=== PATIENT | female | born 1960 | race African-American/Black ===

== ENCOUNTER 2021-03-27 10:59 | Inpatient (IN) | payer OTHER ==
[2021-03-27 12:27] VITALS: BMI 31.2
[2021-03-27] MEDS ORDERED: MAG HYDROX/AL HYDROX/SIMETH 30 ML UNIT-DOSE CUP PO PRN (13:59)
[2021-03-27] MEDS ORDERED: IBUPROFEN 400 MG TABLET (FP) PO PRN (13:59)
[2021-03-27] MEDS ORDERED: MAGNESIUM HYDROX 2400MG/30ML ORAL SUSPENSION 30 ML CUP PO PRN (13:59)
[2021-03-27] MEDS ORDERED: NICOTINE POLACRILEX 2 MG GUM BUC PRN (13:59)
[2021-03-27] MEDS ORDERED: BISMUTH SUBSALICYLATE 262 MG/15 ML BTL PO PRN (13:59)
[2021-03-27] MEDS ORDERED: ACETAMINOPHEN 325 MG TABLET (FP) PO PRN ×2 (13:59)
[2021-03-27] MEDS ORDERED: MAGNESIUM CITRATE 300 ML BOTTLE PO PRN (13:59)
[2021-03-27] MEDS ORDERED: ONDANSETRON *ODT* 4 MG TABLET SL PRN (13:59)
[2021-03-27] MEDS ORDERED: MENTHOL/PHENOL 1 EACH UD MM PRN (13:59)
[2021-03-27] MEDS ORDERED: METHOCARBAMOL 500 MG TABLET PO PRN (13:59)
[2021-03-27] MEDS ORDERED: IBUPROFEN 400 MG TABLET (FP) PO ONE (14:19)
[2021-03-27] MEDS ORDERED: ACETAMINOPHEN 325 MG TABLET (FP) PO ONE (14:22)
[2021-03-27] MEDS: hydrOXYzine PAMOATE 25 MG CAPSULE (FP) PO SCH ×3 (15:19→21:09)
[2021-03-27] MEDS: PRENATAL VITAMINS W/ FOLIC ACID TABLET (FP) PO SCH (15:19)
[2021-03-27 17:49] LABS: HEMATOCRIT 37.8 % (32.4-45.2); HEMOGLOBIN 12.4 GM/dL (10.7-15.3); MCH 28.3 pg (25.7-33.7); MCHC 32.8 g/dl (32.0-36.0); MEAN CELL VOLUME 86.2 fl (80-96); MEAN PLT VOLUME 8.8 fl (7.5-11.1); PLATELET COUNT 247 10^3/uL (134-434); RBC 4.38 M/mm3 (3.60-5.2); WHITE BLOOD COUNT 6.7 K/mm3 (4.0-10.0)
[2021-03-27 17:53] LABS: ALBUMIN 3.9 g/dl (3.4-5.0); BLOOD UREA NITROGEN 20.9 mg/dL (7-18); CALCIUM 9.4 mg/dL (8.5-10.1)
[2021-03-27 17:57] LABS: BILIRUBIN,TOTAL 0.2 mg/dL (0.2-1); CREATININE 0.8 mg/dL (0.55-1.3); TOT PROT 7.8 g/dl (6.4-8.2)
[2021-03-27 18:45] LABS: HIV INTERPRETATION NEGATIVE (NEGATIVE)
[2021-03-27] MEDS ORDERED: THIAMINE HCL 100 MG TABLET (FP) PO SCH (22:00)
[2021-03-27] MEDS ORDERED: MELATONIN 5 MG TABLETS PO SCH (22:00)
[2021-03-28] MEDS: hydrOXYzine PAMOATE 25 MG CAPSULE (FP) PO SCH ×2 (06:41→11:04)
[2021-03-28] MEDS: ALBUTEROL SO4 HFA INHALER IH PRN ×2 (07:50→11:33)
[2021-03-28 08:57] VITALS: TEMP 97.7
[2021-03-28 09:52] VITALS: BP 124/78; PULSE 97
[2021-03-28] MEDS ORDERED: NICOTINE 7 MG/24 HOURS TOPICAL PATCH TD SCH (10:00)
[2021-03-28] MEDS: PRENATAL VITAMINS W/ FOLIC ACID TABLET (FP) PO SCH (11:04)
[2021-03-28] MEDS ORDERED: SUVOREXANT 10 MG TABLET PO PRN (22:00)
[2021-03-28] MEDS ORDERED: QUEtiapine FUMARATE 300 MG TABLET PO SCH (22:00)
== END 2021-03-28 12:33 | disposition other institution (70) | DRG 773 ==
LOC: YASAS 10:59 → UNDOADMIN 13:29 → Y6N 13:29
PROVIDERS: ADMIT Allergy & Immunology; ATTEND Allergy & Immunology
PROC: HZ2ZZZZ Detoxification Services for Substance Abuse Treatment (ICD-10-PCS; principal; 2021-03-27)
DX: F11.23 Opioid dependence with withdrawal (principal); F10.230 Alcohol dependence with withdrawal, uncomplicated; F14.20 Cocaine dependence, uncomplicated; F12.20 Cannabis dependence, uncomplicated; F17.210 Nicotine dependence, cigarettes, uncomplicated; F19.282 Other psychoactive substance dependence with psychoactive substance-induced sleep disorder; F19.280 Other psychoactive substance dependence with psychoactive substance-induced anxiety disorder; F19.24 Other psychoactive substance dependence with psychoactive substance-induced mood disorder; F31.9 Bipolar disorder, unspecified; J43.9 Emphysema, unspecified; J45.20 Mild intermittent asthma, uncomplicated; L30.9 Dermatitis, unspecified; R76.11 Nonspecific reaction to tuberculin skin test without active tuberculosis; Z62.810 Personal history of physical and sexual abuse in childhood; Z86.19 Personal history of other infectious and parasitic diseases; Z59.0 Homelessness
CPT/HCPCS: 36415; 80053; 85027; 86593; 86780; 87389; 93005; 93010; C9803; U0003; U0005

== ENCOUNTER 2021-03-28 12:40 | Inpatient (IN) | payer OTHER ==
[2021-03-28] MEDS ORDERED: NICOTINE POLACRILEX 2 MG GUM BC PRN (13:57)
[2021-03-28] MEDS ORDERED: guaiFENesin 200 MG/10 ML 10 ML UNIT-DOSE CUPS PO PRN (13:57)
[2021-03-28] MEDS ORDERED: MAGNESIUM CITRATE 300 ML BOTTLE PO PRN (13:57)
[2021-03-28] MEDS ORDERED: MAGNESIUM HYDROX 2400MG/30ML ORAL SUSPENSION 30 ML CUP PO PRN (13:57)
[2021-03-28] MEDS ORDERED: P-EPHED 60MG/TRIPROLIDI 2.5MG TABLET PO PRN (13:57)
[2021-03-28] MEDS ORDERED: LOPERAMIDE HCL 2 MG CAPSULE PO PRN (13:57)
[2021-03-28] MEDS: hydrOXYzine PAMOATE 25 MG CAPSULE (FP) PO SCH ×3 (14:20→21:14)
[2021-03-28] MEDS: MAG HYDROX/AL HYDROX/SIMETH 30 ML UNIT-DOSE CUP PO PRN (18:31)
[2021-03-28] MEDS: QUEtiapine FUMARATE 300 MG TABLET PO SCH (21:14)
[2021-03-28] MEDS: THIAMINE HCL 100 MG TABLET (FP) PO SCH (21:14)
[2021-03-28] MEDS: MELATONIN 5 MG TABLETS PO SCH (21:14)
[2021-03-28] MEDS: ALBUTEROL SO4 HFA INHALER IH PRN (21:49)
[2021-03-29] MEDS: hydrOXYzine PAMOATE 25 MG CAPSULE (FP) PO SCH ×5 (06:59→21:14)
[2021-03-29] MEDS: PRENATAL VITAMINS W/ FOLIC ACID TABLET (FP) PO SCH (09:50)
[2021-03-29] MEDS: NICOTINE 7 MG/24 HOURS TOPICAL PATCH TD SCH (09:50)
[2021-03-29] MEDS: ALBUTEROL SO4 HFA INHALER IH PRN (09:50)
[2021-03-29] MEDS ORDERED: HYDROCORTISONE 1% TOPICAL LOTION 118 ML BOTTLE TP PRN (11:06)
[2021-03-29] MEDS ORDERED: ALBUTEROL SO4 0.042% IH SOL 1.25 MG/3 ML VIAL.NEB NEB PRN (13:37)
[2021-03-29] MEDS: MAG HYDROX/AL HYDROX/SIMETH 30 ML UNIT-DOSE CUP PO PRN (13:54)
[2021-03-29] MEDS: IBUPROFEN 400 MG TABLET (FP) PO PRN (18:09)
[2021-03-29] MEDS ORDERED: QUEtiapine FUMARATE 100 MG TABLET (FP) ONE (19:00)
[2021-03-29] MEDS: THIAMINE HCL 100 MG TABLET (FP) PO SCH (21:14)
[2021-03-29] MEDS: QUEtiapine FUMARATE 300 MG TABLET PO SCH (21:15)
[2021-03-29] MEDS: MELATONIN 5 MG TABLETS PO SCH (21:16)
[2021-03-29] MEDS: FLUOCINONIDE 0.05% TOP OINT (60 GM TUBE) TP SCH (21:18)
[2021-03-30] MEDS: hydrOXYzine PAMOATE 25 MG CAPSULE (FP) PO SCH ×5 (06:44→21:12)
[2021-03-30] MEDS: IBUPROFEN 400 MG TABLET (FP) PO PRN ×2 (07:44→21:10)
[2021-03-30] MEDS: PRENATAL VITAMINS W/ FOLIC ACID TABLET (FP) PO SCH (09:59)
[2021-03-30] MEDS: FLUOCINONIDE 0.05% TOP OINT (60 GM TUBE) TP SCH ×2 (09:59→21:11)
[2021-03-30] MEDS: NICOTINE 7 MG/24 HOURS TOPICAL PATCH TD SCH (09:59)
[2021-03-30] MEDS: ACETAMINOPHEN 325 MG TABLET (FP) PO PRN ×2 (10:00→14:40)
[2021-03-30] MEDS: ALBUTEROL SO4 HFA INHALER IH PRN (12:02)
[2021-03-30] MEDS ORDERED: QUEtiapine FUMARATE 100 MG TABLET (FP) ONE (18:50)
[2021-03-30] MEDS: QUEtiapine FUMARATE 300 MG TABLET PO SCH (21:09)
[2021-03-30] MEDS: THIAMINE HCL 100 MG TABLET (FP) PO SCH (21:09)
[2021-03-30] MEDS: MELATONIN 5 MG TABLETS PO SCH (21:09)
[2021-03-31] MEDS: hydrOXYzine PAMOATE 25 MG CAPSULE (FP) PO SCH ×5 (06:36→21:28)
[2021-03-31] MEDS: PRENATAL VITAMINS W/ FOLIC ACID TABLET (FP) PO SCH (10:03)
[2021-03-31] MEDS: NICOTINE 7 MG/24 HOURS TOPICAL PATCH TD SCH (10:04)
[2021-03-31] MEDS: ALBUTEROL SO4 HFA INHALER IH PRN (10:04)
[2021-03-31] MEDS: FLUOCINONIDE 0.05% TOP OINT (60 GM TUBE) TP SCH ×2 (10:04→21:28)
[2021-03-31] MEDS ORDERED: QUEtiapine FUMARATE 100 MG TABLET (FP) ONE (18:31)
[2021-03-31] MEDS: QUEtiapine FUMARATE 300 MG TABLET PO SCH (21:27)
[2021-03-31] MEDS: MELATONIN 5 MG TABLETS PO SCH (21:27)
[2021-03-31] MEDS: THIAMINE HCL 100 MG TABLET (FP) PO SCH (21:27)
[2021-04-01] MEDS: hydrOXYzine PAMOATE 25 MG CAPSULE (FP) PO SCH ×5 (06:59→21:55)
[2021-04-01] MEDS: ALBUTEROL SO4 HFA INHALER IH PRN (07:37)
[2021-04-01] MEDS: ALBUTEROL SO4 0.083% IH SOL 2.5 MG/3 ML VIAL.NEB. NEB PRN (08:57)
[2021-04-01] MEDS: FLUOCINONIDE 0.05% TOP OINT (60 GM TUBE) TP SCH ×2 (10:09→21:55)
[2021-04-01] MEDS: PRENATAL VITAMINS W/ FOLIC ACID TABLET (FP) PO SCH (10:09)
[2021-04-01] MEDS: NICOTINE 7 MG/24 HOURS TOPICAL PATCH TD SCH (10:09)
[2021-04-01] MEDS ORDERED: QUEtiapine FUMARATE 100 MG TABLET (FP) ONE (18:40)
[2021-04-01] MEDS: QUEtiapine FUMARATE 300 MG TABLET PO SCH (21:16)
[2021-04-01] MEDS: THIAMINE HCL 100 MG TABLET (FP) PO SCH (21:17)
[2021-04-01] MEDS: MELATONIN 5 MG TABLETS PO SCH (21:17)
[2021-04-01] MEDS: ACETAMINOPHEN 325 MG TABLET (FP) PO PRN (21:17)
[2021-04-02] MEDS: hydrOXYzine PAMOATE 25 MG CAPSULE (FP) PO SCH ×5 (07:05→21:37)
[2021-04-02] MEDS: NICOTINE 7 MG/24 HOURS TOPICAL PATCH TD SCH (09:53)
[2021-04-02] MEDS: FLUOCINONIDE 0.05% TOP OINT (60 GM TUBE) TP SCH ×2 (09:53→21:37)
[2021-04-02] MEDS: PRENATAL VITAMINS W/ FOLIC ACID TABLET (FP) PO SCH (09:53)
[2021-04-02] MEDS: ACETAMINOPHEN 325 MG TABLET (FP) PO PRN (09:53)
[2021-04-02] MEDS: ALBUTEROL SO4 HFA INHALER IH PRN (09:54)
[2021-04-02] MEDS ORDERED: MASKS NR ONE (10:28)
[2021-04-02] MEDS ORDERED: QUEtiapine FUMARATE 100 MG TABLET (FP) ONE (18:17)
[2021-04-02] MEDS: QUEtiapine FUMARATE 300 MG TABLET PO SCH (21:36)
[2021-04-02] MEDS: THIAMINE HCL 100 MG TABLET (FP) PO SCH (21:37)
[2021-04-02] MEDS: MELATONIN 5 MG TABLETS PO SCH (21:37)
[2021-04-03] MEDS: hydrOXYzine PAMOATE 25 MG CAPSULE (FP) PO SCH ×5 (06:56→21:15)
[2021-04-03] MEDS: PRENATAL VITAMINS W/ FOLIC ACID TABLET (FP) PO SCH (09:52)
[2021-04-03] MEDS: NICOTINE 7 MG/24 HOURS TOPICAL PATCH TD SCH (09:52)
[2021-04-03] MEDS: ACETAMINOPHEN 325 MG TABLET (FP) PO PRN (09:53)
[2021-04-03] MEDS: FLUOCINONIDE 0.05% TOP OINT (60 GM TUBE) TP SCH ×2 (09:54→21:16)
[2021-04-03] MEDS: COLLOIDAL OATMEAL 1 BAR EACH TP PRN (14:19)
[2021-04-03] MEDS ORDERED: QUEtiapine FUMARATE 100 MG TABLET (FP) ONE (18:28)
[2021-04-03] MEDS: MELATONIN 5 MG TABLETS PO SCH (21:15)
[2021-04-03] MEDS: THIAMINE HCL 100 MG TABLET (FP) PO SCH (21:15)
[2021-04-03] MEDS: QUEtiapine FUMARATE 300 MG TABLET PO SCH (21:15)
[2021-04-04] MEDS: hydrOXYzine PAMOATE 25 MG CAPSULE (FP) PO SCH ×5 (06:22→21:25)
[2021-04-04] MEDS: PRENATAL VITAMINS W/ FOLIC ACID TABLET (FP) PO SCH (09:50)
[2021-04-04] MEDS: NICOTINE 7 MG/24 HOURS TOPICAL PATCH TD SCH (09:50)
[2021-04-04] MEDS: FLUOCINONIDE 0.05% TOP OINT (60 GM TUBE) TP SCH ×2 (09:51→21:28)
[2021-04-04] MEDS: IBUPROFEN 400 MG TABLET (FP) PO PRN ×2 (09:52→21:27)
[2021-04-04] MEDS: ALBUTEROL SO4 HFA INHALER IH PRN (09:53)
[2021-04-04] MEDS: BUDESONIDE/FORMETEROL FUMARATE 160/4.5 mcg INHALER IH SCH ×2 (14:55→21:28)
[2021-04-04] MEDS ORDERED: QUEtiapine FUMARATE 100 MG TABLET (FP) ONE (18:46)
[2021-04-04] MEDS: THIAMINE HCL 100 MG TABLET (FP) PO SCH (21:25)
[2021-04-04] MEDS: MELATONIN 5 MG TABLETS PO SCH (21:25)
[2021-04-04] MEDS: QUEtiapine FUMARATE 300 MG TABLET PO SCH (21:25)
[2021-04-05] MEDS: hydrOXYzine PAMOATE 25 MG CAPSULE (FP) PO SCH ×5 (06:14→21:11)
[2021-04-05] MEDS: PRENATAL VITAMINS W/ FOLIC ACID TABLET (FP) PO SCH (10:06)
[2021-04-05] MEDS: IBUPROFEN 400 MG TABLET (FP) PO PRN ×2 (10:07→21:10)
[2021-04-05] MEDS: ALBUTEROL SO4 HFA INHALER IH PRN (10:08)
[2021-04-05] MEDS: BUDESONIDE/FORMETEROL FUMARATE 160/4.5 mcg INHALER IH SCH ×2 (10:08→21:11)
[2021-04-05] MEDS: NICOTINE 7 MG/24 HOURS TOPICAL PATCH TD SCH (10:27)
[2021-04-05] MEDS: FLUOCINONIDE 0.05% TOP OINT (60 GM TUBE) TP SCH ×2 (10:27→21:11)
[2021-04-05] MEDS ORDERED: QUEtiapine FUMARATE 100 MG TABLET (FP) ONE (18:28)
[2021-04-05] MEDS: THIAMINE HCL 100 MG TABLET (FP) PO SCH (21:09)
[2021-04-05] MEDS: MELATONIN 5 MG TABLETS PO SCH (21:09)
[2021-04-05] MEDS: QUEtiapine FUMARATE 300 MG TABLET PO SCH (21:10)
[2021-04-06] MEDS: ACETAMINOPHEN 325 MG TABLET (FP) PO PRN ×2 (00:26→09:54)
[2021-04-06] MEDS: hydrOXYzine PAMOATE 25 MG CAPSULE (FP) PO SCH ×5 (06:28→21:36)
[2021-04-06] MEDS: PRENATAL VITAMINS W/ FOLIC ACID TABLET (FP) PO SCH (09:52)
[2021-04-06] MEDS: FLUOCINONIDE 0.05% TOP OINT (60 GM TUBE) TP SCH ×2 (09:53→21:37)
[2021-04-06] MEDS: NICOTINE 7 MG/24 HOURS TOPICAL PATCH TD SCH (09:53)
[2021-04-06] MEDS: BUDESONIDE/FORMETEROL FUMARATE 160/4.5 mcg INHALER IH SCH ×2 (09:56→21:37)
[2021-04-06] MEDS: ALBUTEROL SO4 HFA INHALER IH PRN (09:56)
[2021-04-06] MEDS: COLLOIDAL OATMEAL 1 BAR EACH TP PRN (14:38)
[2021-04-06] MEDS ORDERED: QUEtiapine FUMARATE 100 MG TABLET (FP) ONE (18:43)
[2021-04-06] MEDS: MELATONIN 5 MG TABLETS PO SCH (21:36)
[2021-04-06] MEDS: QUEtiapine FUMARATE 300 MG TABLET PO SCH (21:36)
[2021-04-06] MEDS: THIAMINE HCL 100 MG TABLET (FP) PO SCH (21:36)
[2021-04-07] MEDS: hydrOXYzine PAMOATE 25 MG CAPSULE (FP) PO SCH ×5 (06:53→21:16)
[2021-04-07] MEDS: ALBUTEROL SO4 HFA INHALER IH PRN ×2 (06:55→10:09)
[2021-04-07] MEDS: PRENATAL VITAMINS W/ FOLIC ACID TABLET (FP) PO SCH (10:08)
[2021-04-07] MEDS: FLUOCINONIDE 0.05% TOP OINT (60 GM TUBE) TP SCH ×2 (10:08→21:18)
[2021-04-07] MEDS: IBUPROFEN 400 MG TABLET (FP) PO PRN (10:08)
[2021-04-07] MEDS: NICOTINE 7 MG/24 HOURS TOPICAL PATCH TD SCH (10:09)
[2021-04-07] MEDS: BUDESONIDE/FORMETEROL FUMARATE 160/4.5 mcg INHALER IH SCH ×2 (10:09→21:17)
[2021-04-07] MEDS ORDERED: QUEtiapine FUMARATE 100 MG TABLET (FP) ONE (18:42)
[2021-04-07] MEDS: MELATONIN 5 MG TABLETS PO SCH (21:16)
[2021-04-07] MEDS: THIAMINE HCL 100 MG TABLET (FP) PO SCH (21:16)
[2021-04-07] MEDS: QUEtiapine FUMARATE 300 MG TABLET PO SCH (21:16)
[2021-04-07] MEDS: ACETAMINOPHEN 325 MG TABLET (FP) PO PRN (21:18)
[2021-04-08] MEDS: hydrOXYzine PAMOATE 25 MG CAPSULE (FP) PO SCH ×5 (06:32→21:35)
[2021-04-08] MEDS: IBUPROFEN 400 MG TABLET (FP) PO PRN ×2 (07:38→14:33)
[2021-04-08] MEDS: PRENATAL VITAMINS W/ FOLIC ACID TABLET (FP) PO SCH (10:18)
[2021-04-08] MEDS: BUDESONIDE/FORMETEROL FUMARATE 160/4.5 mcg INHALER IH SCH ×2 (10:19→21:35)
[2021-04-08] MEDS: FLUOCINONIDE 0.05% TOP OINT (60 GM TUBE) TP SCH ×2 (10:19→21:36)
[2021-04-08] MEDS: NICOTINE 7 MG/24 HOURS TOPICAL PATCH TD SCH (10:19)
[2021-04-08] MEDS: ACETAMINOPHEN 325 MG TABLET (FP) PO PRN ×2 (10:20→21:39)
[2021-04-08] MEDS: ALBUTEROL SO4 0.083% IH SOL 2.5 MG/3 ML VIAL.NEB. NEB PRN (17:53)
[2021-04-08] MEDS ORDERED: QUEtiapine FUMARATE 100 MG TABLET (FP) ONE (20:11)
[2021-04-08] MEDS: THIAMINE HCL 100 MG TABLET (FP) PO SCH (21:35)
[2021-04-08] MEDS: QUEtiapine FUMARATE 300 MG TABLET PO SCH (21:35)
[2021-04-08] MEDS: MELATONIN 5 MG TABLETS PO SCH (21:36)
[2021-04-09] MEDS: hydrOXYzine PAMOATE 25 MG CAPSULE (FP) PO SCH ×5 (06:40→21:18)
[2021-04-09] MEDS: BUDESONIDE/FORMETEROL FUMARATE 160/4.5 mcg INHALER IH SCH ×2 (10:29→21:20)
[2021-04-09] MEDS: PRENATAL VITAMINS W/ FOLIC ACID TABLET (FP) PO SCH (10:29)
[2021-04-09] MEDS: NICOTINE 7 MG/24 HOURS TOPICAL PATCH TD SCH (10:29)
[2021-04-09] MEDS: FLUOCINONIDE 0.05% TOP OINT (60 GM TUBE) TP SCH ×2 (10:29→21:17)
[2021-04-09] MEDS: IBUPROFEN 400 MG TABLET (FP) PO PRN ×2 (10:30→21:19)
[2021-04-09] MEDS ORDERED: QUEtiapine FUMARATE 100 MG TABLET (FP) ONE (20:24)
[2021-04-09] MEDS: THIAMINE HCL 100 MG TABLET (FP) PO SCH (21:18)
[2021-04-09] MEDS: MELATONIN 5 MG TABLETS PO SCH (21:18)
[2021-04-09] MEDS: QUEtiapine FUMARATE 300 MG TABLET PO SCH (21:20)
[2021-04-09] MEDS: ALBUTEROL SO4 0.083% IH SOL 2.5 MG/3 ML VIAL.NEB. NEB PRN (21:21)
[2021-04-10] MEDS: hydrOXYzine PAMOATE 25 MG CAPSULE (FP) PO SCH ×5 (06:54→21:46)
[2021-04-10] MEDS: PRENATAL VITAMINS W/ FOLIC ACID TABLET (FP) PO SCH (09:40)
[2021-04-10] MEDS: NICOTINE 7 MG/24 HOURS TOPICAL PATCH TD SCH (09:40)
[2021-04-10] MEDS: ALBUTEROL SO4 HFA INHALER IH PRN (09:41)
[2021-04-10] MEDS: BUDESONIDE/FORMETEROL FUMARATE 160/4.5 mcg INHALER IH SCH ×2 (09:41→21:46)
[2021-04-10] MEDS: ACETAMINOPHEN 325 MG TABLET (FP) PO PRN (09:42)
[2021-04-10] MEDS: FLUOCINONIDE 0.05% TOP OINT (60 GM TUBE) TP SCH ×2 (10:11→21:47)
[2021-04-10] MEDS ORDERED: QUEtiapine FUMARATE 100 MG TABLET (FP) ONE (18:35)
[2021-04-10] MEDS: THIAMINE HCL 100 MG TABLET (FP) PO SCH (21:45)
[2021-04-10] MEDS: MELATONIN 5 MG TABLETS PO SCH (21:45)
[2021-04-10] MEDS: QUEtiapine FUMARATE 300 MG TABLET PO SCH (21:46)
[2021-04-11] MEDS: hydrOXYzine PAMOATE 25 MG CAPSULE (FP) PO SCH ×2 (06:34→09:31)
[2021-04-11] MEDS: ACETAMINOPHEN 325 MG TABLET (FP) PO PRN (06:34)
[2021-04-11 07:05] VITALS: TEMP 97
[2021-04-11 09:11] VITALS: BP 150/84; PULSE 91
[2021-04-11] MEDS: NICOTINE 7 MG/24 HOURS TOPICAL PATCH TD SCH (09:30)
[2021-04-11] MEDS: FLUOCINONIDE 0.05% TOP OINT (60 GM TUBE) TP SCH (09:30)
[2021-04-11] MEDS: ALBUTEROL SO4 HFA INHALER IH PRN (09:30)
[2021-04-11] MEDS: PRENATAL VITAMINS W/ FOLIC ACID TABLET (FP) PO SCH (09:30)
[2021-04-11] MEDS: BUDESONIDE/FORMETEROL FUMARATE 160/4.5 mcg INHALER IH SCH (09:30)
[2021-04-11] MEDS ORDERED: PT OWN MED DRAWER 7, Y5N ONE (09:32)
[2021-04-11] MEDS: IBUPROFEN 400 MG TABLET (FP) PO PRN (09:33)
== END 2021-04-11 09:50 | disposition home or self-care (01) | DRG 772 ==
LOC: YASAS 12:40 → Y3W 12:45
PROVIDERS: ADMIT Allergy & Immunology; ATTEND Allergy & Immunology
PROC: HZ42ZZZ Group Counseling for Substance Abuse Treatment, Cognitive-Behavioral (ICD-10-PCS; principal; 2021-03-28)
DX: F14.20 Cocaine dependence, uncomplicated (principal); F10.10 Alcohol abuse, uncomplicated; F12.10 Cannabis abuse, uncomplicated; F17.210 Nicotine dependence, cigarettes, uncomplicated; F44.9 Dissociative and conversion disorder, unspecified; L30.9 Dermatitis, unspecified; H91.90 Unspecified hearing loss, unspecified ear; M79.642 Pain in left hand; R76.11 Nonspecific reaction to tuberculin skin test without active tuberculosis; Z86.19 Personal history of other infectious and parasitic diseases
CPT/HCPCS: 71046-TC-FY; 93005; 93010; 94640